=== PATIENT | female | born 1965 | race Caucasian/White ===

== ENCOUNTER 2024-05-17 09:00 | Outpatient (RCR) | payer OTHER, BC, SELFPAY | END 2024-09-14 23:59 | disposition home or self-care (01) | PROVIDERS: PCP Physician Assistant Medical; Visit Provider Physician Assistant Medical | DX: M54.9 Dorsalgia, unspecified (principal); S06.0XAD Concussion with loss of consciousness status unknown, subsequent encounter; V89.2XXD Person injured in unspecified motor-vehicle accident, traffic, subsequent encounter; S13.4XXD Sprain of ligaments of cervical spine, subsequent encounter; Z51.89 Encounter for other specified aftercare | CPT/HCPCS: 97110; 97140; 97162 ==

== ENCOUNTER 2024-06-08 07:51 | Outpatient (CLI) | payer OTHER, BC, SELFPAY ==
--- NOTE | 2024-06-08 08:00 | CRLHL7_ITS ---
For Patients: As a result of the Century Cures Act, medical imaging exams and procedure reports are released immediately into your electronic medical record. You may view this report before your referring provider. If you have questions, please contact your health care provider. Indication: Abnormal MRI. Technique: Noncontrast axial CT of the thoracic spine with coronal and sagittal reformats are provided. Comparison: No prior studies available for comparison at this institution. Findings: Mild exaggeration of thoracic kyphosis. No fracture. No prevertebral or paraspinal edema. No aggressive osseous lesions. Benign osseous hemangiomas in the C7, T2, T9, T10, T11, T12 and L1 vertebral bodies. Anterior osteophytic spurring at multiple levels. Mild dependent atelectasis. Mild scarring at the lung apices. Mucous plugging in a right upper lobe bronchiole. No suspicious disc bulge or herniation. No spinal canal stenosis or neural foramen narrowing. Impression: 1. No convincing radiographic evidence of acute osseous injury. 2. Mild scattered degenerative changes of the thoracic spine. Mild exaggeration of thoracic kyphosis. 3. No significant spinal canal stenosis or neural foramen narrowing. 4. Benign osseous hemangiomas in the C7, T2, T9, T10, T11, T12 and L1 vertebral bodies. Please note that all CT scans at this facility use dose modulation, iterative reconstruction, and/or weight-based dosing when appropriate to reduce radiation dose to as low as reasonably achievable. Dictated by Cullen Kaufman MD @ 06/09/2024 2:33:38 PM (Electronically Signed)
== END 2024-06-08 07:52 | disposition home or self-care (01) ==
PROVIDERS: PCP Physician Assistant Medical; Visit Provider Physician Assistant Medical
DX: R93.7 Abnormal findings on diagnostic imaging of other parts of musculoskeletal system (principal); M40.294 Other kyphosis, thoracic region; D18.09 Hemangioma of other sites
CPT/HCPCS: 72128

== ENCOUNTER 2025-03-01 13:23 | Outpatient (CLI) | payer BC, SELFPAY ==
--- NOTE | 2025-03-01 13:40 | CRLHL7_ITS ---
For Patients: As a result of the Cures Act, medical imaging exams and procedure reports are released immediately into your electronic medical record. You may view this report before your referring provider. If you have questions, please contact your health care provider. BILATERAL DIGITAL SCREENING MAMMOGRAM WITH COMPUTER-AIDED DETECTION AND TOMOSYNTHESIS CLINICAL HISTORY: Routine screening exam. COMPARISON: Mammogram 05/02/2020. TECHNIQUE: Digital mammogram in CC and MLO projections including computer-aided detection (CAD) and tomosynthesis. BREAST COMPOSITION: There are scattered areas of fibroglandular density. FINDINGS: RIGHT Breast: No suspicious findings. LEFT Breast: There is a focal asymmetry at 12 o`clock, middle depth. IMPRESSION: LEFT breast focal asymmetry. RECOMMENDATIONS: Additional mammographic views of the LEFT breast including 90 degree lateral, spot compression CC and MLO. LEFT breast ultrasound may also be required. A member of the health care team will contact the patient to schedule the required additional imaging appointment(s). BI-RADS Category 0: Incomplete: Need Additional Imaging Evaluation Dictated by Shanon Perry MD @ 03/02/2025 9:48:16 PM/mary AGUIRRE/Dictated by: Shanon Perry MD @ 03/02/2025 9:48:00 PM (Electronically Signed)
== END 2025-03-01 13:24 | disposition home or self-care (01) ==
LOC: MAMMO 13:24
PROVIDERS: PCP Physician Assistant Medical; Visit Provider Physician Assistant Medical
DX: Z12.31 Encounter for screening mammogram for malignant neoplasm of breast (principal); N63.20 Unspecified lump in the left breast, unspecified quadrant
CPT/HCPCS: 77063; 77067

== ENCOUNTER 2025-03-09 09:34 | Outpatient (CLI) | payer BC, SELFPAY ==
--- NOTE | 2025-03-09 09:45 | CRLHL7_ITS ---
For Patients: As a result of the Cures Act, medical imaging exams and procedure reports are released immediately into your electronic medical record. You may view this report before your referring provider. If you have questions, please contact your health care provider. LEFT DIAGNOSTIC MAMMOGRAM WITH COMPUTER-AIDED DETECTION AND TOMOSYNTHESIS LEFT BREAST ULTRASOUND CLINICAL HISTORY: LEFT breast mass/asymmetry. COMPARISON: 03/01/2025, 05/02/2020. TECHNIQUE: Digital LEFT mammogram in three projections. Computer-aided detection and tomosynthesis were used in this interpretation. Real-time ultrasound imaging of LEFT breast with imaging documentation. Scanning was performed by both the technologist and the radiologist. BREAST COMPOSITION: There are scattered areas of fibroglandular density. FINDINGS: Additional mammogram images LEFT breast submitted. Persistent nodular density upper LEFT breast without architectural distortion. No suspicious calcifications. Targeted LEFT breast ultrasound performed. At 1 o`clock, 8 cm from the nipple, there is a subtle hypoechoic nodular structure which measures 5 mm. IMPRESSION: Subtle 5 mm nodule 1 o`clock, 8 cm from the nipple, LEFT breast. RECOMMENDATIONS: Ultrasound-guided core needle biopsy. A lay language report of this examination will be provided to the patient. BI-RADS Category 4: Suspicious Dictated by Cullen Goodrich MD @ 03/09/2025 11:23:58 AM /sp SP/Dictated by: Cullen Goodrich MD @ 03/09/2025 11:23:00 AM (Electronically Signed)
--- NOTE | 2025-03-09 10:15 | CRLHL7_ITS ---
For Patients: As a result of the Century Cures Act, medical imaging exams and procedure reports are released immediately into your electronic medical record. You may view this report before your referring provider. If you have questions, please contact your health care provider. PLEASE SEE LEFT BREAST DIAGNOSTIC MAMMOGRAM PERFORMED SAME DAY. CRL:sp SP/Dictated by: Cullen Goodrich MD @ 03/09/2025 11:37:00 AM (Electronically Signed)
== END 2025-03-09 09:35 | disposition home or self-care (01) ==
LOC: MAMMO 09:34
PROVIDERS: PCP Physician Assistant Medical; Visit Provider Physician Assistant Medical
DX: N63.20 Unspecified lump in the left breast, unspecified quadrant (principal); R92.8 Other abnormal and inconclusive findings on diagnostic imaging of breast
CPT/HCPCS: 76642; 77065; G0279